=== PATIENT | female | born 1960 | race Caucasian/White ===

== ENCOUNTER 2016-10-03 13:48 | Emergency (ER) | payer SELFPAY ==
--- NOTE | 2016-10-03 14:37 | ED Physician Chart ---
Chief Complaint/HPI - Patient Information Date Seen:: 10/03/16 Time Seen:: 14:05 Chief Complaint:: Itchiness and redness in both arms and L knee for 2 days. History of Present Illness:: Pt sustained stings by wasps in both upper arms and left knee when she accidentally disturbed a wasp hive 2 days ago. Pt has noticed increased redness and itchiness in affected areas. No fever. No dyspnea. No N/V/D. No lightheadedness. Allergies:: Allergies Allergy/AdvReac Type Severity Reaction Status Date / Time No Known Allergies Allergy Verified 10/03/16 14:04 Vitals:: Vital Signs - 8 hr 10/03/16 13:50 Temp 98.5 F HR 91 RR 16 BP 131/70 O2 Sat % 99 Historian:: Patient Family MD/PCP:: Unknown LMP:: Postmenopausal Review:: Nurse's Note Reviewed Review of Systems - Review of Systems General/Constitutional: No fever, No chills, No weight loss, No weakness, No diaphoresis, No loss of appetite Skin: No bruising, Other (pruritic erythematous areas in both UE's and LLE due to wasp stings.) Head: No headache, No light-headedness Eyes: No loss of vision, No pain, No diplopia ENT: No earache, No nasal drainage, No sore throat, No tinnitus Neck: No neck pain, No swelling, No stiffness, No mass noted Cardio Vascular: No chest pain, No palpitations, No edema Pulmonary: No SOB, No cough, No wheezing GI: No nausea, No vomiting, No diarrhea, No pain G/U: No dysuria, No frequency, No hematuria Musculoskeletal: No bone or joint pain, No back pain, No muscle pain Endocrine: No polyuria, No polydipsia Psychiatric: No prior psych history Hematopoietic: No bruising, No lymphadenopathy Allergic/Immuno: No urticaria, No angioedema Neurological: No syncope, No focal symptoms, No weakness, No paresthesia, No headache, No dizziness, No confusion Past Medical History - Past Medical History Past Medical History: No significant medical hx Family History: None Social History: Smoker (1 pack per week. Pt has been informed about health risks associated with tobacco use and has been advised to quit. Pt has been encouraged to enroll in a smoking cessation program. Pt acknowledges understanding.), No Alcohol, No Drug Use, , Lives Alone, Employed Employment:: Customer's service. Surgical History: other (Surgery for tubal about 26 y/a.) Psychiatricy History: None Medication: Reviewed Family Medical History - Family Member Father Living Status: Other Medical History: heart attack Physical Exam - Physical Examination General/Constitutional: Awake, Well-developed, well-nourished, Alert, No distress, GCS 15, Non-toxic appearing, Ambulatory Other Gen/Cons comments:: Breathes comfortably, speaks clearly, interacts normally, and ambulates without difficulty. Head: Atraumatic Eyes: Lids, conjuctiva normal, PERRL, EOMI Skin: No ecchymosis, Well hydrated, No lymphadenopathy Other Skin comments:: There are erythematous areas with minimal edema ranges from 5 to 8 cm in both upper arms, L knee area and L lower abdomen with excoriation meza and sting meza. No open wound, crepitus, red streakings, or exudate. ENMT: External ears, nose nl, Nasal exam nl, Lips, teeth, gums nl, Oropharynx nl Neck: Nontender, Full ROM w/o pain, No nuchal rigidity, No mass, No stridor Respiratory: Nl effort/Exclusion, Clear to Auscultation, No Wheeze/Rhonchi/Rales Cardio Vascular: RRR, No murmur, gallop, rubs GI: No tenderness/rebounding/guarding, No organomegaly, Normal BS's, Nondistended, No mass/bruits Other GI comments:: Abdomen is soft. See also Skin exam. Extremities: No tenderness or effusion, Full ROM, normal strength in all extremities Other Extremities comments:: See also Skin exam. All joints in UE's and LE's have FROM. No other abnormal findings. Neuro/Psych: Alert/oriented (oriented x 3), Judgement/insight normal, Mood normal, Normal gait, No focal deficits ED Septic Shock - . Is Septic Shock (SBP<90, OR Lactate>4 mmol\L) present?: No - <6hrs of presentation: Vital Signs: Vital Signs - 8 hr 10/03/16 13:50 Temp 98.5 F HR 91 RR 16 BP 131/70 O2 Sat % 99 Reassessment (Disposition) - Reassessment Reassessment:: 1608 Pt feels better, pruritis, erythema, and swelling has decreased. Pt requests to leave now and does not want further observation/management in hospital. Aftercare instructions have been given. Her daughter Margaux will drive her home. Reassessment Condition:: Improved - Diagnosis Diagnosis:: h/o wasp sting with local allergic reaction. Cannot r/o early cellulitis. Stable and improved. - Aftercare/Follow up Instructions Aftercare/Follow-Up Instructions:: Refer to Discharge Instructions Notes:: Avoid scratching. Continue Benadryl 50 mg po q6h as directed. Drowsiness precautions given with the use of Benadryl. F/U with Dr. Arizmendi or PCP of pt's choice in one day for recheck. Return to ER immediately if condition worsens or if any further question Medication Prescribed:: Bactrim DS one tab po q12h for 10 days. D-20 R-0 Ranitidine 150 mg tab one tab po q12h D-14 R-0 - Patient Disposition Discharge/Transfer:: Home Time:: 16:15 Condition at Disposition:: Stable, Improved ED Discharge Plan - Patient Disposition Admit/Discharge/Transfer: PT DISCHARGED HOME Condition at Disposition: Improved Instructions: Allergies, [id number], Insect Bite, [id number] Additional Instructions: TAKE MEDICATIONS PRESCRIBED APPLY COLD COMPRESSES TO AFFECTED AREA RETURN TO ER FOR WORSENING SYMPTOMS, SHORTNESS OF BREATH, OR OTHER CONCERNS FOLLOW UP WITH YOUR PRIMARY MD IN 2 DAYS
[2016-10-03] MEDS ORDERED: Sulfamethoxazole/TMP 800/160mg Tab PO ONE (14:46)
[2016-10-03] MEDS ORDERED: Sulfamethoxazole/TMP 800/160mg Tab ONE (15:16)
== END 2016-10-03 16:20 | disposition home or self-care (01) ==
LOC: ER 13:48
DX: T63.461A Toxic effect of venom of wasps, accidental (unintentional), initial encounter (principal); F17.210 Nicotine dependence, cigarettes, uncomplicated; Y92.89 Other specified places as the place of occurrence of the external cause
CPT/HCPCS: 99284; 96374; J2930; Z7502